=== PATIENT | female | born 1995 | race Caucasian/White ===

== ENCOUNTER 2017-11-17 20:49 | Emergency (ER) | payer BC, MEDICAID ==
[2017-11-17] MEDS: DIPHENHYDRAMINE 25 MG CAP PO (21:28)
[2017-11-17] MEDS: FAMOTIDINE 20 MG TAB PO (21:28)
[2017-11-17] MEDS: DEXAMETHASONE 10 MG/ML 1 ML INJ IM (21:28)
== END 2017-11-17 22:00 | disposition home or self-care (01) ==
LOC: FTE 20:49
DX: L50.9 Urticaria, unspecified (principal)
CPT/HCPCS: 81025; 96372; 99284-25